=== PATIENT | male | born 1965 | race Caucasian/White ===

== ENCOUNTER 2017-03-13 07:49 | Emergency (ER) | payer BC ==
[~2017-03-13] VITALS: Ht 172.7 cm; Wt 85.5 kg
[2017-03-13 07:50] VITALS: Ht 172.7 cm; Wt 85.5 kg
[2017-03-13] MEDS ORDERED: BELLADONNA/PHENOBARBITAL TAB PO STA (08:07)
[2017-03-13] MEDS ORDERED: LIDOCAINE/MYLANTA 40 ML BTL PO STA (08:07)
[2017-03-13] MEDS ORDERED: FAMOTIDINE 20 MG INJ IV STA (08:07)
[2017-03-13] MEDS ORDERED: ONDANSETRON 4 MG INJ IV STA (08:07)
[2017-03-13 08:36] LABS: ADD SCAN DIFF NO
[2017-03-13 08:42] LABS: BASOPHILS % 0.5 % (0.0-2.0); EOSINOPHILS # 0.1 10^3/ul (0.0-0.5); EOSINOPHILS % 1.7 % (0.0-7.0); HEMATOCRIT 42.4 % (42.0-52.0); HEMOGLOBIN 14.1 g/dl (14.0-18.0); LYMPHOCYTES # 1.1 10^3/ul (0.8-2.9); LYMPHOCYTES % 13.6 % (15.0-51.0); MEAN CORPUSCULAR HEMOGLOBIN 29.6 pg (29.0-33.0); MEAN CORPUSCULAR HGB CONC 33.3 g/dl (32.0-37.0); MEAN CORPUSCULAR VOLUME 89.1 fl (82.0-101.0); MEAN PLATELET VOLUME 11.4 fl (7.4-10.4); MONOCYTE # 0.4 10^3/ul (0.3-0.9); MONOCYTES % 5.2 % (0.0-11.0); NEUTROPHIL # 6.6 10^3/ul (1.6-7.5); NEUTROPHILS % 78.5 % (39.0-77.0); PLATELET COUNT 171 10^3/UL (140-415); RED BLOOD COUNT 4.76 10^6/ul (4.70-6.10); WHITE BLOOD COUNT 8.4 10^3/ul (4.8-10.8)
[2017-03-13 08:55] LABS: CHLORIDE 102 mmol/L (97-110)
[2017-03-13 08:56] LABS: SODIUM 141 mmol/L (135-144)
[2017-03-13 08:58] LABS: ALANINE AMINOTRANSFERASE 80 IU/L (13-69); ALKALINE PHOSPHATASE 98 IU/L (42-121); ANION GAP 16 (8-16); ASPARTATE AMINO TRANSFERASE 40 IU/L (15-46); BILIRUBIN,INDIRECT 0.5 mg/dl (0-1.1); BILIRUBIN,TOTAL 0.5 mg/dl (0.2-1.3); BLOOD UREA NITROGEN 16 mg/dl (7-20); CARBON DIOXIDE 27 mmol/L (21-31); CREATININE 0.72 mg/dl (0.61-1.24); GLUCOSE 192 mg/dl (70-220); TOTAL PROTEIN 6.5 g/dl (6.1-8.1)
[2017-03-13 08:59] LABS: CALCIUM 8.9 mg/dl (8.4-10.2)
--- NOTE | 2017-03-13 09:09 | ERD ---
ER Documentation Chief Complaint Date/Time DATE: 03/13/17 TIME: 09:01 Chief Complaint generalized abdominal pain , nausea started @ 2 am HPI This is a 51-year-old male who presents with epigastric abdominal pain with associated nausea that started around 2 AM this morning. The patient describes an uncomfortable feeling in his epigastrium. He denies any chest pain, no exertional symptoms, no pleuritic pain. No fevers or chills or back pain. No dysuria, no diarrhea. ROS All systems reviewed and are negative except as per history of present illness. Medications Home Meds Active Scripts Omeprazole* (Omeprazole*) 20 Mg Capsule., 20 MG PO DAILY, #30 Prov:CORAL WHITFIELD MD 03/13/17 Allergies Allergies: Coded Allergies: No Known Allergy (Unverified , 03/13/17) PMhx/Soc Medical and Surgical Hx: pt denies Medical Hx, pt denies Surgical Hx Hx Alcohol Use: No Hx Substance Use: No Hx Tobacco Use: No Smoking Status: Never smoker FmHx Family History: No diabetes Physical Exam Vitals Vital Signs Date Time Temp Pulse Resp B/P Pulse Ox O2 Delivery O2 Flow Rate FiO2 03/13/17 07:50 97.3 68 19 131/81 96 Physical Exam General: Well developed, well nourished, no acute distress Head: Normocephalic, atraumatic. Eyes: Pupils equally reactive, EOM intact ENT: Moist mucous membranes Neck: Supple, no lymphadenopathy Respiratory: Lungs clear bilaterally, no distress Cardiovascular: RRR, no murmurs, rubs, or gallops Abdominal: Soft, mild epigastric tenderness without rebound or guarding, negative Olguin sign : Deferred MSK: No edema, no unilateral swelling, 5/5 strength Neurologic: Alert and oriented, moving all extremities, normal speech, no focal weakness, no cerebellar signs Skin: No rash Psych: Normal mood Result Diagram: 03/13/17 0800 03/13/17 0800 Results 24 hrs Laboratory Tests Test 03/13/17 08:00 White Blood Count 8.410^3/ul Red Blood Count 4.7610^6/ul Hemoglobin 14.1g/dl Hematocrit 42.4% Mean Corpuscular Volume 89.1fl Mean Corpuscular Hemoglobin 29.6pg Mean Corpuscular Hemoglobin Concent 33.3g/dl Red Cell Distribution Width 13.0% Platelet Count 92929^3/UL Mean Platelet Volume 11.4fl Neutrophils % 78.5% Lymphocytes % 13.6% Monocytes % 5.2% Eosinophils % 1.7% Basophils % 0.5% Nucleated Red Blood Cells % 0.0/100WBC Neutrophils # 6.610^3/ul Lymphocytes # 1.110^3/ul Monocytes # 0.410^3/ul Eosinophils # 0.110^3/ul Basophils # 0.010^3/ul Nucleated Red Blood Cells # 0.010^3/ul Sodium Level 141mmol/L Potassium Level 4.0mmol/L Chloride Level 102mmol/L Carbon Dioxide Level 27mmol/L Anion Gap 16 Blood Urea Nitrogen 16mg/dl Creatinine 0.72mg/dl Glucose Level 192mg/dl Calcium Level 8.9mg/dl Total Bilirubin 0.5mg/dl Direct Bilirubin 0.00mg/dl Indirect Bilirubin 0.5mg/dl Aspartate Amino Transf (AST/SGOT) 40IU/L Alanine Aminotransferase (ALT/SGPT) 80IU/L Alkaline Phosphatase 98IU/L Troponin I < 0.012ng/ml Total Protein 6.5g/dl Albumin 4.0g/dl Globulin 2.50g/dl Albumin/Globulin Ratio 1.60 Lipase 152U/L Current Medications Medications (Trade) Dose Ordered Sig/Gualberto Route PRN Reason Start Time Stop Time Status Last Admin Dose Admin Famotidine (Pepcid Iv) 20 mg ONCE STAT IV 03/13/17 08:07 03/13/17 08:09 DC 03/13/17 08:23 Miscellaneous Medication (Gi Cocktail (2)) 40 ml ONCE STAT PO 03/13/17 08:07 03/13/17 08:09 DC 03/13/17 08:23 Belladonna/ Phenobarbital () 2 tab ONCE STAT PO 03/13/17 08:07 03/13/17 08:09 DC 03/13/17 08:23 Ondansetron HCl (Zofran Inj) 4 mg ONCE STAT IV 03/13/17 08:07 03/13/17 08:09 DC 03/13/17 08:23 Procedures/MDM EKG, MONITORS, & DIAGNOSTIC IMAGING: EKG: I reviewed and interpreted a 12-lead EKG. Rhythm: Normal sinus rhythm Ectopy: None Intervals: No abnormalities ST segments: No elevations or depressions T waves: nonspecific T-wave inversion in lead III Gallbladder ultrasound: No acute process LAB INTERPRETATION: No leukocytosis, no hepatobiliary obstruction, negative troponin MEDICAL DECISION MAKING: The patient presents with epigastric abdominal pain and mild nausea. His symptoms seem to be localized to the epigastrium I believe this is most likely GI process such as reflux, peptic ulcer disease, gastritis. Consider possible early viral process. Patient has no exertional symptoms and no signs or symptoms concerning for acute coronary syndrome. He does have some nonspecific T-wave inversion on his EKG and a believe a troponin would be appropriate. Greater than 6 hours of symptoms. The patient does not have signs or symptoms of acute intra-abdominal process such as acute cholecystitis, bowel obstruction, acute appendicitis. However given the patient's description of symptoms laboratory testing and gallbladder ultrasound would be reasonable. ER COURSE: Patient given a GI cocktail. The patient has complete resolution of symptoms. His laboratory testing and diagnostic imaging is unremarkable. The patient is safe for discharge at this time. The patient was advised to follow-up with primary care physician. He does admit to eating a very spicy meal late last night. His symptoms are likely secondary to gastritis. I kept the patient and/or family informed of laboratory and diagnostic imaging results throughout the emergency room course. DISPOSITION PLAN: We discussed follow up with the patient's primary care doctor within 24 to 48 hours as needed. We also discussed return to the emergency room for worsening symptoms or worsening condition. Outpatient referral: [None required] Discharge Medications: Prilosec Departure Diagnosis: Primary Impression: Gastritis Gastritis type: other gastritis Chronicity: acute Gastritis bleeding: without bleeding Qualified Code: K29.00 - Other acute gastritis without hemorrhage Additional Impression: Abdominal pain Abdominal location: epigastric Qualified Code: R10.13 - Epigastric pain Condition: Stable CORAL WHITFIELD MD Mar 13, 2017 09:09
[2017-03-13 09:10] LABS: TROPONIN-I < 0.012 ng/ml (0.00-0.12)
--- NOTE | 2017-03-13 09:20 | RADRPT ---
PROCEDURE: US Abdomen. CLINICAL INDICATION: abdominal pain TECHNIQUE: Multiple real-time images were acquired of the patient's right upper quadrant abdomen a nd retroperitoneum utilizing a high resolution transducer. COMPARISON: None FINDINGS: The liver demonstrates increased echogenicity. The liver is normal in size and no focal solid lesio ns are seen. The liver measures 15.3 cm in length. The portal vein is patent with normal direction o f flow. No intrahepatic biliary dilatation is seen. No gallstones are identified within the gallbladder. There is no pericholecystic fluid or gallbladd er wall thickening. The common bile duct measures 4 mm in maximal dimension. The visualized portions of the pancreas are unremarkable. The tail of the pancreas is not seen. No free fluid is identified. The right kidney is normal in size, and demonstrate normal echogenicity and cortical thickness. The right kidney measures 11.4 cm in long dimension. There is no evidence of hydronephrosis. There are no kidney stones. RPTAT: AA IMPRESSION: Diffuse fatty infiltration of the liver. No evidence of gallstones. .Juan Vogt MD, Date Time Electronically viewed and signed by .Juan Vogt MD, on 03/13/2017 09:20 .S/
[2017-03-13] MEDS ORDERED: OMEP20CA16 PO (09:48)
== END 2017-03-13 09:47 | disposition home or self-care (01) ==
LOC: E/R 07:49
DX: K29.00 Acute gastritis without bleeding (principal); R10.13 Epigastric pain; R11.0 Nausea
CPT/HCPCS: 76705; 80053; 83690; 84484; 85025; 93005; J2405; Z7610; 36415; 96374; 96375